=== PATIENT | male | born 1965 | race Caucasian/White ===

== ENCOUNTER 2025-06-13 20:26 | Emergency (ER) | payer OTHER ==
[~2025-06-13] VITALS: Ht 177.8 cm; Wt 77.1 kg
[2025-06-13] MEDS ORDERED: COREG12.5 M1 PO (20:33)
[2025-06-13] MEDS ORDERED: ATORVASTATIN CA80 M1 PO (20:33)
[2025-06-13] MEDS ORDERED: ELIQUIS5 M1 PO (20:33)
[2025-06-13] MEDS ORDERED: ALDACTONE25 M1 PO (20:34)
[2025-06-13 21:59] LABS: BASO # 0.0 10*3/uL (0.0-0.1); BASO % 0.3 % (0.0-1.0); EOS # 0.0 10*3/uL (0.0-0.4); EOS % 0.0 % (1.0-4.0); MEAN CELL VOLUME 88.5 fl (80.0-94.0); MEAN CORPUSCULAR HGB 28.8 pg (27.0-31.0); MEAN PLATELET VOLUME 9.4 fl (9.6-12.3); MONO # 1.0 10*3/uL (0.1-1.0); MONO % 8.9 % (3.0-9.0); NEUT # 8.7 10*3/uL (2.3-7.9); NEUT % 79.8 % (47.0-73.0); NUCLEATED RED BLOOD CELL 0.0 % (0.0-0.0); NUCLEATED RED BLOOD CELL 0.0 10*3/uL (0.0-0.0); PLATELET COUNT AUTOMATED 266 10*3/uL (130-400); RED CELL DISTRI WIDTH 13.4 % (0-14.5)
[2025-06-13 22:16] LABS: BUN 13 mg/dl (9-23)
[2025-06-13 22:17] LABS: ETHYL ALCOHOL < 3.0 mg/dl (<3)
== END 2025-06-14 01:55 | disposition home or self-care (01) ==
LOC: ED 20:26
PROVIDERS: Nurse Practitioner Family
DX: S09.90XA Unspecified injury of head, initial encounter (principal); M25.511 Pain in right shoulder; M79.601 Pain in right arm; M79.604 Pain in right leg; M25.531 Pain in right wrist; R42 Dizziness and giddiness; R11.0 Nausea; Z88.5 Allergy status to narcotic agent; Z79.899 Other long term (current) drug therapy; W18.39XA Other fall on same level, initial encounter; Y93.01 Activity, walking, marching and hiking; Y92.89 Other specified places as the place of occurrence of the external cause; Y99.8 Other external cause status